=== PATIENT | male | born 1970 | race Caucasian/White ===

== ENCOUNTER → 2017-10-20 | Outpatient (CLI) | payer BC ==
[2017-10-20 18:53] LABS: APPEARANCE, URINE CLEAR (CLEAR); BACTERIA, URINE AUTO NEGATIVE (NEGATIVE); BILIRUBIN, URINE AUTO NEGATIVE (NEGATIVE); BLOOD, URINE BLOOD NEGATIVE (NEGATIVE); COLOR, URINE STRAW (YELLOW); GLUCOSE, URINE (UA) AUTO NEGATIVE (NEGATIVE); KETONE, URINE AUTO NEGATIVE (NEGATIVE); LEUKOCYTE ESTERASE, URINE AUTO NEGATIVE (NEGATIVE); NITRITE, URINE AUTO NEGATIVE (NEGATIVE); PROTEIN, URINE AUTO NEGATIVE (NEGATIVE); RBC, URINE AUTO 0 /HPF (0-3); SPECIFIC GRAVITY URINE AUTO 1.006 (1.002-1.035); SQUAMOUS EPITHELIAL CELL UR AU 0 /HPF (0-6); UROBILINOGEN, URINE AUTO 0.2 mg/dL (0.0-2.0); WBC, URINE AUTO 1 /HPF (0-3)
== END ==
LOC: M SMT 14:40
DX: N50.89 Other specified disorders of the male genital organs (principal); N43.3 Hydrocele, unspecified
CPT/HCPCS: 81001

== ENCOUNTER → 2018-04-06 | Outpatient (REF) | payer OTHER ==
[~2018-04-06] MED LIST: BACT800T5 PO; DULO1CAP3 PO; FURO20TA2 PO; HYDR-3719 PO; LISI-538 PO; METF500T13 PO; METO50TA7 PO; OMEP20CA3 PO; ONDA4TAB5 PO; SPIR-10 PO; TAMS1CAP17 PO; WARF-22 PO; WARF-23; WARF-23 PO; ZYLO300T6 PO
[2018-04-06 17:37] LABS: APPEARANCE, URINE CLEAR (CLEAR); BACTERIA, URINE AUTO NEGATIVE (NEGATIVE); BILIRUBIN, URINE AUTO NEGATIVE (NEGATIVE); BLOOD, URINE BLOOD NEGATIVE (NEGATIVE); COLOR, URINE YELLOW (YELLOW); GLUCOSE, URINE (UA) AUTO NEGATIVE (NEGATIVE); KETONE, URINE AUTO NEGATIVE (NEGATIVE); LEUKOCYTE ESTERASE, URINE AUTO 1+ (NEGATIVE); MUCUS, URINE SMALL (NEGATIVE); NITRITE, URINE AUTO NEGATIVE (NEGATIVE); PROTEIN, URINE AUTO NEGATIVE (NEGATIVE); RBC, URINE AUTO 1 /HPF (0-3); SQUAMOUS EPITHELIAL CELL UR AU 0 /HPF (0-6); UROBILINOGEN, URINE AUTO 0.2 mg/dL (0.0-2.0); WBC, URINE AUTO 3 /HPF (0-3)
== END ==
LOC: M SMT 16:24
PROVIDERS: ATTEND Nurse Practitioner Family
DX: N45.1 Epididymitis (principal); Z79.01 Long term (current) use of anticoagulants

== ENCOUNTER 2018-04-08 12:25 | Day surgery (SDC) | payer OTHER ==
[~2018-04-08] VITALS: Ht 193 cm; Wt 209.1 kg
[2018-04-08] MEDS ORDERED: TAMS1CAP17 PO (12:40)
[2018-04-08] MEDS ORDERED: WARF-22 PO (12:40)
[2018-04-08] MEDS ORDERED: SPIR-10 PO (12:40)
[2018-04-08] MEDS ORDERED: WARF-23 (12:40)
[2018-04-08] MEDS ORDERED: HYDR-3719 PO (12:40)
[2018-04-08] MEDS ORDERED: OMEP20CA3 PO (12:40)
[2018-04-08] MEDS ORDERED: BACT800T5 PO (12:40)
[2018-04-08] MEDS ORDERED: ONDA4TAB5 PO (12:40)
[2018-04-08] MEDS ORDERED: LISI-538 PO (12:40)
[2018-04-08] MEDS ORDERED: METO50TA7 PO (12:40)
[2018-04-08] MEDS ORDERED: DULO1CAP3 PO (12:44)
--- NOTE | 2018-04-08 13:46 | REP ---
Clinical: Right-sided pain and swelling. Technique: Real time ríos scale and color Doppler ultrasound using linear high frequency transducer. Findings: The right testicle is avascular and a large complex hydrocele/hematocele is identified. Right testicle measures 4.4 x 2.1 x 3.6 cm. The left testicle is essentially normal in contour, size, echogenicity, and vascularity measuring 4.9 x 3.4 x 2.3 cm. Impression: Findings consistent with right testicular torsion/infarction including large right complex hydrocele/hematocele. Electronically Signed by Williams Art MD 04/08/2018 01:38 P
[2018-04-08] MEDS ORDERED: METF500T13 PO (13:49)
[2018-04-08] MEDS ORDERED: ZYLO300T6 PO (13:49)
[2018-04-08] MEDS ORDERED: FURO20TA2 PO (13:49)
[2018-04-08] MEDS ORDERED: WARF-23 PO (13:49)
[2018-04-08 14:11] LABS: BASO # 0.1 10^3/uL (0.0-0.2); BASO % 0.8 % (0.0-1.0); EOS # 0.2 10^3/uL (0.0-0.50); EOS % 1.6 % (0.0-3.0); HEMATOCRIT 42.9 % (42.0-52.0); HEMOGLOBIN 14.7 g/dl (13.5-17.5); LYMPH # 1.8 10^3/uL (1.5-4.5); LYMPH % 17.2 % (24.0-44.0); MEAN CORPUSCULAR HEMOGLOBIN 32.7 pg (27.0-33.0); MEAN CORPUSCULAR HGB CONC 34.3 g/dl (32.0-36.5); MEAN CORPUSCULAR VOLUME 95.5 fl (80.0-96.0); MONO # 0.6 10^3/uL (0.0-0.8); MONO % 6.2 % (0.0-5.0); NEUTROPHILS # 7.6 10^3/uL (1.8-7.7); NEUTROPHILS % 73.9 % (36.0-66.0); PLATELET COUNT, AUTOMATED 236 10^3/uL (150-450); RED BLOOD COUNT 4.49 10^6/uL (4.30-6.10); WHITE BLOOD COUNT 10.3 10^3/uL (4.0-10.0)
[2018-04-08 14:22] LABS: INR 1.9; PROTHROMBIN TIME 22.1 SECONDS (12.1-14.4)
[2018-04-08 14:37] LABS: BLOOD UREA NITROGEN 20 MG/DL (7-18); CALCIUM LEVEL 8.9 MG/DL (8.5-10.1); CARBON DIOXIDE LEVEL 25 MEQ/L (21-32); CHLORIDE LEVEL 102 MEQ/L (98-107); CREATININE FOR GFR 1.08 MG/DL (0.70-1.30); GLOMERULAR FILTRATION RATE > 60.0 (>60); GLUCOSE, FASTING 121 MG/DL (70-100); POTASSIUM SERUM 4.5 MEQ/L (3.5-5.1); SODIUM LEVEL 136 MEQ/L (136-145)
[2018-04-08] MEDS ORDERED: BUPIVACAINE HCL 0.25% 30 ML VIAL As Ordered ONE (15:00)
[2018-04-08] MEDS ORDERED: BACITRACIN OINT 30GM As Ordered ONE (15:00)
--- NOTE | 2018-04-08 15:10 | SMCUROLCON ---
Urology Consultation General Date of Consultation 04/08/18 Reason For Consultation This patient is seen for Testicular Swelling. History of Present Illness This is a 48 y/o M w/ a history of recurrent UTIs and epididymo-orchitis, who presented to the ER today w/ worsening right testicular pain. He notes that the pain started 1 wk ago. He was seen by his PCP and started on antibiotics for presumed epididymo-orchitis. His symptoms did not improve and he presented to the urology clinic a few days ago and was started on a different antibiotic. Due to worsened pain he presented to the ER today. Work up in the ER, including a scrotal US was notable for absent blood flow to the right testicle w/ a large complex hydrocele/hematocele. He has no urinary complaints at this time. Past Medical History Medical History DM2, GERD, gout, a fib, HTN, prostatitis Surgical Hstory left knee surgery x 3, right knee surgery, cholecystectomy, appendectomy, inguinal hernia repair Medications Current Medications Current Medications Home Med (Med Rec Complete!) ASDIRECTED XX ; Start 04/08/18 at 14:00; Stop 04/08/18 at 14:00; Status DC Allergies Allergies: Coded Allergies: No Known Allergies (Verified , 08/16/02) Review of Systems General: Reports: Normal Appetite; Denies: Fatigue, Malaise Constitutional: Denies: Fever, Chills, Sweats, Weakness, Malaise Pulmonary: Denies: Dyspnea, Cough Cardiovascular: Denies Chest Pain, Denies Palpitations Gastrointestinal: Denies: Nausea, Vomiting, Abdominal Pain Genitourinary: Reports: Other Symptoms (right testicular pain and swelling) Neurological: Denies: Weakness, Numbness, Incoordination, Change in Speech Psych: Reports: Mood Normal; Denies: Anxiety, Depression Physical Examination General Exam: Alert, Cooperative, No Acute Distress Chest Exam: Clear to auscultation Heart Exam: Rate Normal, Regular Rhythm Male Exam right testicular swelling and tenderness; left testicle unremarkable Skin Exam: Nl turgor and temperature Psych Exam: Mental status NL, Mood NL Vital Signs/I&O Vital Signs Date Time Temp Pulse Resp B/P (MAP) Pulse Ox O2 Delivery O2 Flow Rate FiO2 04/08/18 14:16 04/08/18 12:25 97.0 83 18 98 Room Air Laboratory Data 24H Labs Laboratory Tests 2 04/08/18 14:00: Immature Granulocyte % (Auto) 0.3, White Blood Count 10.3H, Red Blood Count 4.49, Hemoglobin 14.7, Hematocrit 42.9, Mean Corpuscular Volume 95.5, Mean Corpuscular Hemoglobin 32.7, Mean Corpuscular Hemoglobin Concent 34.3, Red Cell Distribution Width 13.3, Platelet Count 236, Neutrophils (%) (Auto) 73.9H, Lymphocytes (%) (Auto) 17.2L, Monocytes (%) (Auto) 6.2H, Eosinophils (%) (Auto) 1.6, Basophils (%) (Auto) 0.8, Neutrophils # (Auto) 7.6, Lymphocytes # (Auto) 1.8, Monocytes # (Auto) 0.6, Eosinophils # (Auto) 0.2, Basophils # (Auto) 0.1, Nucleated Red Blood Cells % (auto) 0.0, Prothrombin Time 22.1H, Prothromb Time International Ratio 1.90, Anion Gap 9, Glomerular Filtration Rate > 60.0, Blood Urea Nitrogen 20H, Creatinine 1.08, Sodium Level 136, Potassium Level 4.5, Chloride Level 102, Carbon Dioxide Level 25, Calcium Level 8.9 CBC/BMP Laboratory Tests 04/08/18 14:00 Red Blood Count 4.49, Mean Corpuscular Volume 95.5, Mean Corpuscular Hemoglobin 32.7, Mean Corpuscular Hemoglobin Concent 34.3, Red Cell Distribution Width 13.3, Neutrophils (%) (Auto) 73.9 H, Lymphocytes (%) (Auto) 17.2 L, Monocytes (%) (Auto) 6.2 H, Eosinophils (%) (Auto) 1.6, Basophils (%) (Auto) 0.8, Neutrophils # (Auto) 7.6, Lymphocytes # (Auto) 1.8, Monocytes # (Auto) 0.6, Eosinophils # (Auto) 0.2, Basophils # (Auto) 0.1, Calcium Level 8.9 Assessment This is a 48 y/o M w/ right testicular torsion. It has likely been torsed for 1 week. B/c of this it is not likely able to be salvaged. I discussed this w/ the patient and recommended an attempt at a right orchiopexy, but if the testicle cannot be salvaged, I recommended a right orchiectomy. He noted understanding. Plan - informed consent signed for right orchiopexy, possible right orchiectomy - [facility] preop - OR today SHARON CARROLL MD Apr 08, 2018 15:10
[2018-04-08] MEDS ORDERED: MORPHINE 2 MG/ML 1ML SYRINGE (J2270) IV ONE (15:15)
[2018-04-08] MEDS ORDERED: ceFAZolin 2 GM/D5W 50 ML IV BAG (J0690 PER 500MG) As Ordered ONE (15:51)
[2018-04-08] MEDS ORDERED: ceFAZolin 1GM INJ (J0690 PER 500MG) As Ordered ONE (15:51)
[2018-04-08] MEDS ORDERED: PROPOFOL 200 MG/20 ML VIAL As Ordered ONE (16:10)
[2018-04-08] MEDS ORDERED: LIDOCAINE 2% INJ 100 MG/5 ML SDV (FOR ANES.) As Ordered ONE (16:11)
[2018-04-08] MEDS ORDERED: ROCURONIUM BROMIDE 50 MG/5 ML VIAL As Ordered ONE (16:11)
[2018-04-08] MEDS ORDERED: SUCCINYLCHOLINE 100 MG/5 ML SYRINGE (J0330) As Ordered ONE ×2 (16:11→16:55)
[2018-04-08] MEDS ORDERED: fentaNYL 250 MCG/5 ML INJECTION (J3010) As Ordered ONE (16:13)
[2018-04-08] MEDS ORDERED: MIDAZOLAM INJ 2 MG/2 ML VIAL (J2250) As Ordered ONE ×2 (16:13→16:55)
[2018-04-08] MEDS ORDERED: ceFAZolin SOD 1 GM in D5W MINI-BAG PLUS 50 ML IV ONE (16:45)
[2018-04-08] MEDS ORDERED: METOCLOPRAMIDE INJ 10MG/2ML VIAL (J2765) As Ordered ONE (16:55)
[2018-04-08] MEDS ORDERED: dexameTHASONE 4 MG/ML 1ML VIAL (J1100) As Ordered ONE (16:56)
[2018-04-08] MEDS ORDERED: ONDANSETRON 4MG/2ML VIAL (J2405) As Ordered ONE (16:56)
[2018-04-08] MEDS ORDERED: SUGAMMADEX SODIUM 500 MG/5 ML VIAL (BRIDION) As Ordered ONE (16:56)
[2018-04-08] MEDS ORDERED: ePHEDrine SULFATE 25 MG/5 ML(5MG/ML) SYRINGE As Ordered ONE (17:01)
[2018-04-08] MEDS ORDERED: PHENYLephrine HCL 500 MCG/5 ML (100MCG/ML) SYRINGE (J2370) As Ordered ONE (17:01)
[2018-04-08] MEDS ORDERED: ONDANSETRON 4MG/2ML VIAL (J2405) IV PRN (18:00)
[2018-04-08] MEDS ORDERED: LR 1,000 ML IV SCH (18:00)
[2018-04-08] MEDS ORDERED: PERCOCET 5MG/325MG TAB PO PRN ×2 (18:00)
[2018-04-08] MEDS ORDERED: KETOROLAC 30 MG/ML VIAL (J1885) IV PRN (18:00)
[2018-04-08] MEDS ORDERED: fentaNYL 100 MCG/2 ML INJECTION (J3010) IV PRN (18:00)
[2018-04-08] MEDS ORDERED: MORPHINE 10 MG/ML 1ML VIAL (J2270) IV PRN (18:00)
[2018-04-08] MEDS: PERCOCET 5MG/325MG TAB PO PRN ×2 (18:08→18:34)
[2018-04-08 20:20] VITALS: BP 120/65
--- NOTE | 2018-04-09 09:17 | RO ---
DATE OF PROCEDURE: 04/08/2018 PREPROCEDURE DIAGNOSIS: Right testicular torsion. POSTPROCEDURE DIAGNOSIS: Right testicular torsion. PROCEDURE: Right scrotal exploration and a simple right orchiectomy. SURGEON: Dr. Yan Phan COMMUNITY HEALTH REPRESENTATIVE: None. ANESTHESIA: General. OPERATIVE INDICATIONS: This is a 48-year-old male who has had a torsed right testicle likely for a week. He was brought to the operating room today for right scrotal exploration with possible orchiopexy and possible orchiectomy. DESCRIPTION OF PROCEDURE: The patient was brought to the operating room and general anesthesia was induced. Prophylactic antibiotics were infused. He was then placed in the supine position and prepped and draped in the usual sterile fashion. At this point, approximately 4 or 5 cm transverse incision was made over the right hemiscrotum. I then dissected down through the scrotal layers. The tunica vaginalis was opened and of note there was a large amount of hydrocele fluid which was clear and drained out completely. The testicle was then delivered out of the tunica vaginalis and it was of note completely black. It appeared to be twisted about 180 to 360 degrees. At this point, it was detorsed and there was a very tight band where the testicle was torsed. I then irrigated the testicle with warm saline several times and observed the testicle for approximately 15 minutes. The testicle at no point turned pink and did not appear viable. Because of this, decision was made to remove the testicle. At this point, the spermatic cord was clamped with a Kena clamp a few cm proximal to the testicle. The spermatic cord just distal to the Kena clamp was then divided in two separate packets. Then two right angle clamps were placed around the packets. The spermatic cord was then transected just distal to those packets and the testicle and the spermatic cord were removed. Each of those two packets were then ligated with #0 Vicryl suture ties. Next an #0 Vicryl suture ligature was placed proximal to the Kena clamp and this was tied down. Once the clamps were removed, there was excellent hemostasis on the spermatic cord. I then checked the wound thoroughly for any areas of bleeding within the right hemiscrotum and any bleeding was controlled with electrocautery. Once satisfied with hemostasis, we began our closure. At this point, the dartos was then closed with a running #3-0 chromic suture. The skin was then closed with interrupted #2-0 chromic sutures. Bacitracin ointment was then applied along the incision and fluff dressings were applied and this marked the conclusion of the procedure. The patient was then awakened from anesthesia and transported to the recovery room in stable condition. Estimated blood loss: 10 mL. Complications: None. Specimen: Right testicle. Plan: The patient will followup in the clinic in approximately one week for a postoperative visit. SHANTANU
== END 2018-04-08 20:35 | disposition home or self-care (01) ==
LOC: M ED 12:25 → M SDC 15:02
PROVIDERS: ATTEND Urology
DX: N44.00 Torsion of testis, unspecified (principal); E11.9 Type 2 diabetes mellitus without complications; Z79.84 Long term (current) use of oral hypoglycemic drugs; F32.9 Major depressive disorder, single episode, unspecified; G47.30 Sleep apnea, unspecified; E66.9 Obesity, unspecified; I10 Essential (primary) hypertension; I48.91 Unspecified atrial fibrillation; Z79.01 Long term (current) use of anticoagulants; Z79.899 Other long term (current) drug therapy
CPT/HCPCS: 54520; 76870; 80048; 85025; 85610; 88305; 96374; 99284; J0330; J0690; J1100; J1885; J2250; J2270; J2370; J2405; J2765; J3010

== ENCOUNTER 2019-08-25 07:58 | Day surgery (SDC) | payer BC ==
[~2019-08-25] VITALS: Ht 193 cm; Wt 72.0 kg
[~2019-08-25 07:58] MED LIST changes: -DULO1CAP3 PO; +DULO1CAP6 PO; +ELIQ5TAB PO; +LIDOCAINE 1% MDV 20ML VIAL SQ PRN; +LR 1,000 ML IV ONE; +NITR-67 PO; +OMEP1CAP73 PO; -OMEP20CA3 PO; +ONDA-83 PO; -ONDA4TAB5 PO; +ceFAZolin SOD 1 GM in D5W MINI-BAG PLUS 50 ML IV ONE; +ceFAZolin SOD 2 GM in IV 1 EA IV ONE
[2019-08-25] MEDS ORDERED: MIDAZOLAM INJ 2MG/2ML VIAL (J2250 PER 1MG) As Ordered ONE (08:03)
[2019-08-25] MEDS ORDERED: propofoL 200 MG/20 ML VIAL As Ordered ONE (08:03)
[2019-08-25] MEDS ORDERED: fentaNYL 100 MCG/2 ML INJECTION (J3010) As Ordered ONE (08:03)
[2019-08-25] MEDS ORDERED: LIDOCAINE 2% 100MG/5ML SDV (FOR ANES.) As Ordered ONE (08:03)
[2019-08-25] MEDS ORDERED: ONDANSETRON 4MG/2ML VIAL As Ordered ONE (08:12)
[2019-08-25] MEDS ORDERED: LIDOCAINE 2% 5ML JELLY UROJET As Ordered ONE (09:40)
--- NOTE | 2019-08-25 10:29 | ROOPDOC ---
[facility] Report Of Operation Report of Operation DATE OF PROCEDURE: 08/25/19 PREPROCEDURE DIAGNOSES: Microscopic Hematuria. POSTPROCEDURE DIAGNOSES: Microscopic Hematuria. PROCEDURE: Cystoscopy. SURGEON: Sharon Carroll MD TEXTILE SCREEN MAKER: None ANESTHESIA: Monitored Anesthesia Care (MAC). OPERATIVE INDICATIONS: This is a 49 year old male with microscopic hematuria, here for cystoscopy for evaluation. DESCRIPTION OF PROCEDURE: The patient was brought to the operating room and then was prepped and draped in the usual sterile fashion in the supine position. Lidocaine gel was inserted into the urethra and subsequently, a flexible scope was passed into the bladder using saline as a distention medium. The bladder was inspected circumferentially. The scope was retroflexed to observe the bladder base. There were no bladder tumors or other mucosal lesions. Bilateral ureteral orifices were orthotopic and effluxed clear urine. The prostatic urethra was notable for bilobar hyperplasia with mild occlusion of the bladder outlet. The remainder of the urethra was unremarkable. The scope was then removed. The patient was awakened from anesthesia and transported to the recovery room in stable condition. ESTIMATED BLOOD LOSS: Approximately 1 mL. COMPLICATIONS: None. SPECIMENS: None. PLAN: No additional work up required for microscopic hematuria. The patient will follow up in the urology clinic as previously scheduled. SHARON CARROLL MD Aug 25, 2019 10:29
[2019-08-25 10:35] VITALS: BP 156/85
== END 2019-08-25 10:40 | disposition home or self-care (01) ==
LOC: M SDC 07:58
PROVIDERS: ATTEND Urology
DX: R31.29 Other microscopic hematuria (principal); I48.91 Unspecified atrial fibrillation; I10 Essential (primary) hypertension; K21.9 Gastro-esophageal reflux disease without esophagitis; Z79.84 Long term (current) use of oral hypoglycemic drugs; F32.9 Major depressive disorder, single episode, unspecified; R73.03 Prediabetes; Z79.01 Long term (current) use of anticoagulants; N40.0 Benign prostatic hyperplasia without lower urinary tract symptoms; F17.220 Nicotine dependence, chewing tobacco, uncomplicated
CPT/HCPCS: 52005; J0690; J2250; J3010

== ENCOUNTER → 2023-10-03 | Outpatient (REF) | payer MEDICARE ==
[~2023-10-03] MED LIST changes: -LIDOCAINE 1% MDV 20ML VIAL SQ PRN; -LISI-538 PO; +LISI20TA33 PO; -LR 1,000 ML IV ONE; -ceFAZolin SOD 1 GM in D5W MINI-BAG PLUS 50 ML IV ONE; -ceFAZolin SOD 2 GM in IV 1 EA IV ONE
[2023-10-03 18:58] LABS: APPEARANCE, URINE CLEAR (CLEAR); BACTERIA, URINE AUTO NEGATIVE (NEGATIVE); BILIRUBIN, URINE AUTO NEGATIVE (NEGATIVE); BLOOD, URINE BLOOD NEGATIVE (NEGATIVE); COLOR, URINE STRAW (YELLOW); GLUCOSE, URINE (UA) AUTO 3+ mg/dL (NEGATIVE); KETONE, URINE AUTO NEGATIVE (NEGATIVE); LEUKOCYTE ESTERASE, URINE AUTO NEGATIVE (NEGATIVE); NITRITE, URINE AUTO NEGATIVE (NEGATIVE); PROTEIN, URINE AUTO NEGATIVE (NEGATIVE); RBC, URINE AUTO 0 /HPF (0-3); SPECIFIC GRAVITY URINE AUTO 1.009 (1.002-1.035); SQUAMOUS EPITHELIAL CELL UR AU 0 /HPF (0-6); UROBILINOGEN, URINE AUTO 0.2 mg/dL (0.0-2.0); WBC, URINE AUTO 1 /HPF (0-3)
== END ==
LOC: M SMT 16:43
PROVIDERS: ATTEND Urology
DX: R30.0 Dysuria (principal)
CPT/HCPCS: 81001; 87086; G0463